=== PATIENT | female | born 1995 | race Caucasian/White ===

== ENCOUNTER 2017-07-19 08:45 | Emergency (ER) ==
[2017-07-19 08:50] VITALS: BP 102/76; TEMP 100; BMI 33.3
--- NOTE | 2017-07-19 09:20 | ED.PDOC ---
General ED Provider: Dr. GOGO GARNER Chief Complaint: Respiratory Complaint Stated Complaint: Cough, congestion, chills and body aches.No productive cough. Throat Sore. No neck stiffness. In [place] was bitten on the Rt breast just above aerola by an insect last evening she refers to as an Assassin bug. Denies problems at the site of injury. Time Seen by Physician: 09:05 Mode of Arrival: Walk-In Information Source: Patient Nursing and Triage Documentation Reviewed and Agree: Yes Reviewed sepsis parameters & appropriate labs ordered?: Yes System Inflammatory Response Syndrome: Not Applicable Sepsis Protocol: For patient's 13 years and over: Temp is 96.8 and below OR 101 and greater Pulse >90 BPM Resp >20/minute Acutely Altered Mental Status Are patient's symptoms suggestive of a new infection, such as: -Pneumonia -Skin, Soft Tissue -Endocarditis -UTI -Bone, Joint Infection -Implantable Device -Acute Abdominal Infection -Wound Infection -Meningitis -Blood Stream Catheter Infection -Unknown System Inflammatory Response Syndrome: Not Applicable Respiratory Complaint Exam - Respiratory Complaint/Exam Symptoms Are: Still present Timing: Intermittent Initial Severity: Moderate Current Severity: Moderate Location: Throat Character: Reports: Non-productive cough Aggravating: Reports: None Alleviating: Denies: OTC Meds Associated Signs and Symptoms: Reports: Fever, Chills, URI, Nasal congestion, Sore throat. Denies: Chest pain, Pleuritic chest pain, Wheezing, Hemoptysis, Dizziness, Calf pain, Edema, Vomiting, Weight loss Related History: Reports: Seasonal allergies. Denies: Similar episode, Allergic reaction History of Healthcare-Acquired Pneumonia: No Related Surgical History: Reports: None Pulmonary Embolism Risk Factors: None Cardiac Risk Factors: Reports: None Pseudomonas Risk Factors: Reports: None Tuberculosis Risk Factors: Reports: None Status Asthmaticus Risk Factors: Reports: None Home Oxygen Use: Yes Current Antibiotic Use: No Current Asthma Medication Use: No Respiratory Distress: None Inadequate Respiratory Effort: Yes Dysphagia Present: No Stridor Present: No JVD Present: No Accessory Muscle Use: No Retractions: Not Present Diminished Breath Sounds: No Sinus Tenderness: None Grunting Respirations: No Kussmaul Respirations: No Differential Diagnoses: Influenza, Other (pharyngitis) Review of Systems - Review Of Systems Constitutional: Reports: Chills Eyes: Reports: No symptoms Ears, Nose, Mouth, Throat: Reports: No symptoms, Throat pain Respiratory: Reports: Cough Cardiac: Reports: No symptoms GI: Reports: No symptoms : Reports: No symptoms Musculoskeletal: Reports: No symptoms, Other (Rt Cervical paraspinous muscle spasm/tenderness/ neg nuchagal tightness) Skin: Reports: No symptoms, Other (insect bite Rt Breast) Neurological: Reports: No symptoms Endocrine: Reports: No symptoms Hematologic/Lymphatic: Reports: No symptoms All Other Systems: Reviewed and Negative Past Medical History - Past Medical History Previously Healthy: Yes Endocrine: Reports: None Cardiovascular: Reports: None Respiratory: Reports: None Hematological: Reports: None Gastrointestinal: Reports: None Genitourinary: Reports: None Neuro/Psych: Reports: None Musculoskeletal: Reports: None Cancer: Reports: None Last Menstrual Period: 06/29-07/08 - Surgical History General Surgical History: Reports: None - Family History Family History: Reports: None - Social History Smoking Status: Current every day smoker Hx Substance Use: No Alcohol Screening: Occasionally Physical Exam - Physical Exam Appearance: Well-appearing, No pain distress, Well-nourished Ill-appearing: None Pain Distress: Mild Eyes: STEVE, EOMI, Conjunctiva clear ENT: Ears normal, Nose normal, Oropharynx normal, Erythema Respiratory: Airway patent, Breath sounds clear, Breath sounds equal, Respirations nonlabored Cardiovascular: RRR, Pulses normal, No rub, No murmur GI/: Soft, Nontender, No masses, Bowel sounds normal, No Organomegaly Musculoskeletal: Normal strength, ROM intact, No edema, No calf tenderness Skin: Warm (suprefical red howell adjacedt to aerolar region rt breast), Dry, Normal color Neurological: Sensation intact, Motor intact, Reflexes intact, Cranial nerves intact, Alert, Oriented Psychiatric: Affect appropriate, Mood appropriate Critical Care Note - Critical Care Note Total Time (mins): 0 Course - Course Hematology/Chemistry: 07/19/17 09:25 07/19/17 09:25 Orders, Labs, Meds: Lab Review 07/19/17 07/19/17 07/19/17 09:25 09:25 09:25 WBC 15.95 H RBC 4.21 Hgb 11.4 L Hct 34.6 L MCV 82.2 MCH 27.1 MCHC 32.9 RDW Coeff of Pam 13.9 Plt Count 233 Immature Gran % (Auto) 0.5 Neut % (Auto) 77.8 Lymph % (Auto) 11.7 [place] % (Auto) 7.8 Eos % (Auto) 2.1 Baso % (Auto) 0.1 Immature Gran # (Auto) 0.1 Neut # (Auto) 12.4 H Lymph # (Auto) 1.9 [place] # (Auto) 1.2 Eos # (Auto) 0.3 Baso # (Auto) 0.0 Sodium 138 Potassium 4.2 Chloride 106 Carbon Dioxide 21 Anion Gap 15.2 BUN 8 Creatinine 0.72 Estimated GFR (MDRD) 100.00 BUN/Creatinine Ratio 11.11 Glucose 93 Calcium 9.2 Total Bilirubin 0.5 AST 14 L ALT 12 Alkaline Phosphatase 62 Total Protein 7.0 Albumin 3.6 Globulin 3.4 Albumin/Globulin Ratio 1.06 Infectious [place] Assay Influ A Molecular Assay Negative by naat Influ B Molecular Assay Negative by naat 07/19/17 09:25 WBC RBC Hgb Hct MCV MCH MCHC RDW Coeff of Pam Plt Count Immature Gran % (Auto) Neut % (Auto) Lymph % (Auto) [place] % (Auto) Eos % (Auto) Baso % (Auto) Immature Gran # (Auto) Neut # (Auto) Lymph # (Auto) [place] # (Auto) Eos # (Auto) Baso # (Auto) Sodium Potassium Chloride Carbon Dioxide Anion Gap BUN Creatinine Estimated GFR (MDRD) BUN/Creatinine Ratio Glucose Calcium Total Bilirubin AST ALT Alkaline Phosphatase Total Protein Albumin Globulin Albumin/Globulin Ratio Infectious [place] Assay Negative Influ A Molecular Assay Influ B Molecular Assay Orders Category Date Time Status CBC W/ AUTO DIFF Stat LAB 07/19/17 09:25 Completed CMP [COMPREHENSIVE METABOLIC PANEL] Stat LAB 07/19/17 09:25 Completed FLU A & B MOLECULAR [FLU A/B MOLECULAR] Stat LAB 07/19/17 09:25 Completed MONONUCLOSIS SCREEN Stat LAB 07/19/17 09:25 Completed RAPID STREP SCREEN [MOLECULAR GROUP A STREP] Stat LAB 07/19/17 09:25 Completed Acetaminophen [Tylenol] MEDS 07/19/17 10:20 Discontinued 650 mg PO ONCE STA Medications Discontinued Medications Generic Name Dose Route Start Last Admin Trade Name Freq PRN Reason Stop Dose Admin Acetaminophen 650 mg 07/19/17 10:20 07/19/17 10:31 Tylenol PO 07/19/17 10:21 650 mg ONCE STA Administration Vital Signs: Temp Pulse Resp BP Pulse Ox 07/19/17 08:46 100.0 F H 100 H 20 102/76 96 Departure - Departure Time of Disposition: 11:45 Disposition: HOME SELF-CARE Discharge Problem: URI (upper respiratory infection), Insect bite Instructions: Upper Respiratory Infection (ED), Acetaminophen (By mouth) Condition: Good Pt referred to PMD for follow-up: Yes IPMP verified?: No Additional Instructions: Take Tylenol or Ibuprofen for temperature elevation above 101 degrees Rinse throat with Warm Salt water Monitor for other symptoms or worsening of condition Follow up with PCP in next 5-7 days as needed Prescriptions: Azithromycin [Zithromax] 250 mg PO DAILY #6 tablet Ibuprofen 400 mg PO QID PRN #20 tablet PRN Reason: Fever >101 Allergies/Adverse Reactions: Allergies Penicillins Adverse Reaction (Verified 07/19/17 08:50) Home Medications: Ambulatory Orders Azithromycin [Zithromax] 250 mg PO DAILY #6 tablet 07/19/17 Ibuprofen 400 mg PO QID PRN #20 tablet 07/19/17 Disposition Discussed With: Patient, Family
[2017-07-19] MEDS ORDERED: TYLENOL PO STA (10:20)
== END 2017-07-19 12:13 | disposition home or self-care (01) ==
LOC: ED 08:45
DX: J06.9 Acute upper respiratory infection, unspecified (principal); S20.161A Insect bite (nonvenomous) of breast, right breast, initial encounter; W57.XXXA Bitten or stung by nonvenomous insect and other nonvenomous arthropods, initial encounter; F17.210 Nicotine dependence, cigarettes, uncomplicated
CPT/HCPCS: 36415; 80053; 85025; 86308; 87502; 87651; 99283